=== PATIENT | female | born 1995 | race Hispanic/Latino ===

== ENCOUNTER 2017-09-19 05:30 | Day surgery (SDC) | payer BC ==
[~2017-09-19] VITALS: Ht 165.1 cm; Wt 85.3 kg
[~2017-09-19 05:30] MED LIST: PRENATAL FORMU1 EAC3 PO
--- NOTE | 2017-09-19 08:04 | NUR ---
09/19/17 0804 Tisha Conde 0742 PT ARRIVED RESP EVEN AND UNLABORED. 0747 PT WOKE UP TO STIMULI AND BEGAN TO CRY. PT REPORTED PAIN UNABLE TO RATE. PT REORIENTED TO PACU. 0750 O2 REMOVED O2 SAT 100%. 0753 PAIN MEDICAITON GIVEN PER EMAR. PT REPORTED 5/10 PAIN. 0756 MD AT BEDSIDE. 0800 PT REPORTED 3/10 PAIN AND TOLERABLE AT THIS TIME.
--- NOTE | 2017-09-19 09:07 | NUR ---
LE 0825: PT RETURNED FROM PACU, PT TEARFUL WHEN SEEING. SISTERS AT BEDSIDE COMFORTING PT. VITALS STABLE. PT RATES PAIN A 3/10. WATER GIVEN. NO FURTHER NEEDS AT THIS TIME. LE 0910: SISTER OUT TO REQUEST MORE WATER. IN TO CHECK ON PT, PT AWAKE. STATES MINIMAL PAIN. JELLO REQUESTED, GIVEN. PT UP TO BATHROOM, RADHA PAD CHANGED. UO 150 MLS. PT ASSISTED BACK TO BED. TOLERATED WELL, STATES SLIGHT DIZZINESS. PT BACK TO BED, JELLO GONE. DENIES NAUSEA AND PAIN. SANDWICH ORDERED.
--- NOTE | 2017-09-19 10:07 | NUR ---
BOUBACAR 0950: PT UP TO RESTROOM WITH ASSIST OF SISTER. RETURNED TO ROOM. IN TO CHECK ON PT, DENIES NAUSEA AFTER FOOD. OFFERED PAIN MEDICATION, PT DECLINED. PT RATES PAIN 2/10. ADVISED PT THAT SHE HAS MEET CRITERIAFOR DICHARGE AT THIS TIME AND MAY LEAVE WHENEVER SHE IS READY. PT STATES "I AM STILL A LITTLE DIZZY, CAN I STAY FOR A WHILE?" PT ADVISED SHE MAY STAY, WILL CONTINUE TO CHECK ON PT. NO FURTHER NEEDS AT THIS TIME. FAMILY AT BEDSIDE, CALL LIGHT IN REACH.
--- NOTE | 2017-09-19 10:34 | NUR ---
IN TO CHECK ON PT, PT AWAKE LAYING IN BED. FAMILY AT BEDSIDE. VITALS STABLE. PT RATES PAIN A 6/10, LOWER ABD INTERMITTANT CRAMPING. NORCO GIVEN. PT TOLERATING PO WELL, DENIES NAUSEA. PT ASKED HOW LONG DIZZINESS CAN LAST? ADVISED THAT IT MAY LAST UP TO 24 HRS, ESPICALLY WHEN CHANGING POSITIONS. ADVISED TO CHANGE POSITIONS SLOWLY TODAY. PT UNDERSTANDS. NO FURTHER NEEDS AT THIS TIME. CALL LIGHT IN REACH.
--- NOTE | 2017-09-19 11:26 | NUR ---
LE 1110: PT SISTER OUT TO RN STATION, PT READY TO GO HOME. IN TO CHECK ON PT. IV DC'D. PT DRESSED WITH HELP OF SISTERS, TOLERATED WELL. DISCHARGE INSTRUCTIONS GIVEN. PT AMBULATED TO , WHEELED OUT TO CAR. SISTER ASSISTED INTO CAR. PT TOLERATED WELL
--- NOTE | 2017-10-08 09:55 | OR ---
[facility] [address] [place], [place] [address] Signed DATE OF OPERATION: 09/19/2017 SURGEON: Wilmar Porter MD PREOPERATIVE DIAGNOSIS: Missed . POSTOPERATIVE DIAGNOSIS: Missed . PROCEDURE: Suction D and C. ANESTHESIA: General. ESTIMATED BLOOD LOSS: 100 mL. SPECIMEN: Uterine contents. DRAINS: None. FINDINGS: Vagina, no blood. Cervix, soft, thick, and closed. Uterus was approximately 9-week size and soft. There were no adnexal masses palpable. COMPLICATIONS: None. DESCRIPTION OF PROCEDURE: The patient was brought to the operating room, placed in supine position. After adequate general anesthesia was obtained, she was placed in the dorsal lithotomy position, and prepped and draped in usual sterile fashion. A weighted speculum was placed in the vagina and anterior lip of the cervix was grasped with an Allis clamp. Prior to this, exam under anesthesia was done and the above findings noted. The uterine cavity was gently sounded to 13 cm and then cervix easily dilated. A #9 curved suction curette was then carefully and slowly introduced in the uterine cavity and scraped in Electronically Signed By: WILMAR PORTER MD 10/08/17 0955 PATIENT NAME: ARISTIDES URBANO OPERATIVE REPORT DATE OF : [birth year] REPORT #: [id number] PHYSICIAN: WILMAR PORTER MD PCP: WALLY LARKIN REPORT IS CONFIDENTIAL AND NOT TO BE RELEASED WITHOUT AUTHORIZATION [facility] [address] [place] [address] Signed 360-degree fashion removing moderate amount of blood and normal appearing products of conception. This was carefully done in 360-degree fashion until no additional tissue was removed. At this point, all instruments were removed from the vagina and uterus repalpated and noted to be smaller, although still seemed to be somewhat soft. Pitocin was added to IV bag to help with uterine contraction. Weighted speculum was placed in the vagina. The cervix observed and noted to have good hemostasis with no bleeding at this time. All instruments were then removed. The patient tolerated the procedure well, went to recovery room in good condition. Sponge and instrument count correct in the procedure. Uterine curettings were sent to Pathology for identification. MD TAMIKO De Guzman/MODL /[id number] cc: RENA Goodman Copies: ~ Electronically Signed By: WILMAR PORTER MD 10/08/17 0955 PATIENT NAME: ARISTIDES URBANO OPERATIVE REPORT DATE OF : [birth year] REPORT #: [id number] PHYSICIAN: WILMAR PORTER MD PCP: WALLY LARKIN REPORT IS CONFIDENTIAL AND NOT TO BE RELEASED WITHOUT AUTHORIZATION
== END 2017-09-19 11:20 | disposition home or self-care (01) ==
LOC: DS 05:30 → EDSTATUS 15:09 → DS 15:09
PROVIDERS: General Practice
PROC: 10D17ZZ Extraction of Products of Conception, Retained, Via Natural or Artificial Opening (ICD-10-PCS; principal; 2017-09-19 06:45)
DX: O02.1 Missed abortion (principal); R12 Heartburn; Z79.899 Other long term (current) drug therapy
CPT/HCPCS: 00952; J1100; J1170; J1885; J2210; J2250; J2405; J2590; J3010; J7120